=== PATIENT | male | born 1980 | race Caucasian/White ===

== ENCOUNTER 2021-11-18 09:55 | Emergency (ER) | payer OTHER ==
[~2021-11-18] VITALS: Ht 177.8 cm; Wt 104.0 kg
[2021-11-18] MEDS ORDERED: ORPHENADRINE CITRATE 60 MG/2 ML VIAL. IM ONE (10:45)
[2021-11-18] MEDS ORDERED: KETOROLAC 60 MG/2 ML VIAL. IM ONE (10:45)
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
[2021-11-18] MEDS ORDERED: ORPH-16 PO (11:22)
[2021-11-18 11:30] VITALS: BP 149/82
[2021-11-18] MEDS ORDERED: traMADol 50 MG TABLET PO ONE (11:45)
== END 2021-11-18 11:36 | disposition home or self-care (01) ==
LOC: ER 09:55
DX: S40.012A Contusion of left shoulder, initial encounter (principal); M62.830 Muscle spasm of back; M54.6 Pain in thoracic spine; F17.220 Nicotine dependence, chewing tobacco, uncomplicated; Z88.0 Allergy status to penicillin; V89.2XXA Person injured in unspecified motor-vehicle accident, traffic, initial encounter; Y93.I9 Activity, other involving external motion; Y92.89 Other specified places as the place of occurrence of the external cause; Y99.8 Other external cause status
CPT/HCPCS: 73030; 96372; 99284; J1885; J2360

== ENCOUNTER 2022-03-22 13:33 | Emergency (ER) | payer OTHER ==
[~2022-03-22] VITALS: Ht 177.8 cm; Wt 104.0 kg
[~2022-03-22 13:33] MED LIST: ORPH-16 PO
[2022-03-22 13:53] VITALS: BP 149/82
--- NOTE | 2022-03-22 15:08 | RAD ---
US HEAD/NECK SOFT TISSUE History:Reason: unilateral painless LAD on left neck / Spl. Instructions: / History: Comparison: None Technique: Sonographic examination of the neck soft tissues Findings: Small mildly prominent left submandibular lymph nodes measure 1.8 x 1.0 x 0.7 cm and 1.2 x 1.1 x 0.6 cm. Corresponding with patient's palpable concern. Mildly prominent right deep cervical chain lymph n ode also noted. Impression: 1. Mildly prominent bilateral deep cervical chain lymph nodes, potentially reactive. Recommend alisia nued clinical follow-up and imaging follow-up if interval growth. Electronically signed by: Raul Walsh DO (03/22/2022 3:06 PM) [id number]
--- NOTE | 2022-03-22 15:12 | PHYS DOC ---
Past History Past Medical History: No Pertinent History Past Surgical History: Knee Replacement, Tonsillectomy (adenoidectomy) Smoking: Cigarettes Additional Smoking Information: chew Alcohol Use: None General Adult EDM: Chief Complaint: Neck Pain HPI: HPI: Patient is a 42 year old male who presents with left sided neck swelling. Patient denies associated pain, but states he can feel "pressure" where the swelling is located. He reports he noticed the swelling two days ago with some improvement yesterday. Today, the swelling has returned. Patient denies all associated symptoms including fever, chills, weakness, unintentional weight loss, sore throat, nasal congestion, dysphagia. Review of Systems: Review of Systems: ROS negative or noncontributory except as mentioned in HPI. Allergies: Allergies: Allergies Coded Allergies Type Severity Reaction Last Updated Verified Penicillins Allergy Unknown 11/18/21 Yes Physical Exam: PE: Constitutional: Well developed, well nourished, no acute distress, non-toxic appearance. HENT: Normocephalic, atraumatic, bilateral external ears normal, oropharynx moist, no oral exudates, tonsils absent, no oropharyngeal erythema, nose normal. Eyes: EOMI, conjunctiva normal, no discharge. Neck: Normal range of motion, no bony or paraspinal tenderness, left side swelling without erythema. Firm, well circumscribed, mobile nodule appreciated in anterior cervical region without tenderness. Skin: Warm, dry, no erythema, no rash. Back: No tenderness, no CVA tenderness. Extremities: No cyanosis, no clubbing, ROM intact, no edema. Neurologic: Alert and oriented x4, normal motor function, normal sensory function, no focal deficits noted. Current Patient Data: Vital Signs: Vital Signs Date Time Temp Pulse Resp B/P (MAP) Pulse Ox O2 Delivery O2 Flow Rate FiO2 03/22/22 13:53 96.7 80 22 149/82 (104) 99 Room Air Radiology/Procedures: Radiology/Procedures: PROCEDURE: NECK SOFT TISSUE US HEAD/NECK SOFT TISSUE History:Reason: unilateral painless LAD on left neck / Spl. Instructions: / History: Comparison: None Technique: Sonographic examination of the neck soft tissues Findings: Small mildly prominent left submandibular lymph nodes measure 1.8 x 1.0 x 0.7 cm and 1.2 x 1.1 x 0.6 cm. Corresponding with patient's palpable concern. Mildly prominent right deep cervical chain lymph node also noted. Impression: 1. Mildly prominent bilateral deep cervical chain lymph nodes, potentially reactive. Recommend continued clinical follow-up and imaging follow-up if interval growth. Electronically signed by: Raul Walsh DO (03/22/2022 3:06 PM) [id number] Heart Score: C/O Chest Pain: No Course & Med Decision Making: Course & Med Decision Making Pertinent Labs and Imaging studies reviewed. (See chart for details) Patient is a 42-year-old male who presents with left-sided lymphadenopathy with associated swelling. Ultrasound of the neck reveals possibly reactive submandibular and cervical reactive lymphadenopathy. Patient will be treated with 7-day course of p.o. antibiotics. He is instructed to follow-up with his primary care doctor. Return precautions were provided. Patient understands and is agreeable to discharge plan. Ivanaon Disclaimer: Alisha Disclaimer: This electronic medical record was generated, in whole or in part, using a voice recognition dictation system. Departure Departure: Impression: Primary Impression: Reactive lymphadenopathy Disposition: HOME / SELF CARE / HOMELESS Condition: STABLE Referrals: MANASA MCNEILL MD (PCP) Additional Instructions: EMERGENCY DEPARTMENT GENERAL DISCHARGE INSTRUCTIONS Thank you for coming to [facility] (ED) today and trusting us with you care. We trust that you had a positive experience in our Emergency Department. If you wish to speak to the department management, you may call the director at [phone]. YOUR FOLLOW UP INSTRUCTIONS ARE FOLLOWS: 1. Follow up with your primary care doctor. If you do not have a primary doctor, please ask for a resource list of physicians or clinics that may be able to assist you with follow up care. 2. The emergency provider has interpreted your imaging studies, if any were ordered. The radiology cost specialist also reviewed them. If there is a change in the findings, you will be notified in 48 hours when at all possible. 3. If a lab test or culture has been done, your results will be reviewed and you will be notified if you need a change in treatment. 4. Follow instructions verbalized to you and refer to the printouts if needed. ADDITIONAL INSTRUCTIONS AND INFORMATION: 1. Your care today has been supervised by a physician who is specially trained in emergency care. Many problems require more than one evaluation for a complete diagnosis and treatment. We recommend that you schedule your follow up appointment as recommended to ensure complete treatment of you illness or injury. If you are unable to obtain follow up care and continue to have a problem, or if your condition worsens, we recommend that you return to the ED. 2. We are not able to safely determine your condition over the phone nor are we able to give sound medical advice over the phone. For these safety reasons, if you call for medical advice we will ask you to come to the ED for further evaluation. 3. If you have any questions regarding these discharge instructions please call the ED at [phone]. SAFETY INFORMATION: In the interest of safety, wellness, and injury prevention; we encourage you to wear your seat belt, if you smoke; quite smoking, and we encourage family to use a protective helmet for bicycling and other sporting events that present an increased risk for head injury. IF YOUR SYMPTOMS WORSEN OR NEW SYMPTOMS DEVELOP, OR YOU HAVE CONCERNS ABOUT YOUR CONDITION; OR IF YOUR CONDITION WORSENS WHILE YOU ARE WAITING FOR YOUR FOLLOW UP APPOINTMENT; EITHER CONTACT YOUR PRIMARY CARE DOCTOR, THE PHYSICIAN WHOSE NAME A ND NUMBER YOU WERE GIVEN, OR RETURN TO THE ED IMMEDIATELY. Scripts Clindamycin Hcl (CLINDAMYCIN HCL) 300 Mg Capsule 1 CAP PO TID for LAD, #21 CAP Prov: ANGELLA MATOS 03/22/22 ANGELLA MATOS March 22, 2022 15:12
[2022-03-22] MEDS ORDERED: CLIN-95 PO (15:38)
== END 2022-03-22 16:12 | disposition home or self-care (01) ==
LOC: ER 13:33
DX: R59.1 Generalized enlarged lymph nodes (principal); F17.210 Nicotine dependence, cigarettes, uncomplicated; F17.220 Nicotine dependence, chewing tobacco, uncomplicated; Z88.0 Allergy status to penicillin
CPT/HCPCS: 76536; 87070; 99284